=== PATIENT | female | born 1935 | race Caucasian/White ===

== ENCOUNTER → 2022-10-07 | Outpatient (CLI) | payer MEDICARE ==
[2022-10-07 13:31] LABS: African American GFR (CKD) 61 (>60 ml/min/1.73 sqM); Blood Urea Nitrogen 23 mg/dL (7-17); Non-African American GFR(CKD) 53 (>60 ml/min/1.73 sqM)
--- NOTE | 2022-10-07 15:12 | CT ---
EXAMINATION TYPE: CT urogram wo/w con DATE OF EXAM: 10/07/2022 COMPARISON: HISTORY: micro hematuria CT DLP: 1079 mGycm CONTRAST: Performed and with IV Contrast, patient injected with 80 mL of Isovue 300. CT Urography was performed with unenhanced followed by enhanced images of the kidneys, ureters and ur inary bladder. Delayed images were obtained. 3d reconstruction was performed at a separate work sta tion. FINDINGS: KIDNEYS/BLADDER: Atrophic left kidney which is also hypoperfused. Left renal arteries poorly visuali zed. Minimal cystic changes noted. The left kidney measures 6.5 x 3.0 cm while the right kidney measu res 9.0 x 5.4 cm. Renal cystic changes right kidney noted as well measuring up to 1.8 cm. No hydronep hrosis. No nephrolithiasis. No distinct solid renal mass. No urinary bladder wall thickening. Air i s seen within the urinary bladder which may be from recent catheterization or instrumentation. Correl ate clinically. LUNG BASES-: No visible nodule. No infiltrate. 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 Cardiomegaly. LIVER/GB: No calcified gallstones. No space occupying hepatic lesion. Biliary tree is of normal ca liber. PANCREAS: No inflammation. No distinct mass. SPLEEN: No splenic enlargement. No lesion seen. ADRENALS: No nodule. No thickening. BOWEL: Normal appendix. Normal bowel caliber. No inflammation. GENITAL ORGANS: No gross abnormality. LYMPH NODES: No greater than 1cm abdominal or pelvic lymph nodes are appreciated. AORTA: Infrarenal abdominal aortic aneurysm measuring 4.1 cm AP dimension. Diffuse atheromatous rao e seen. OSSEOUS STRUCTURES: No significant abnormality is seen. OTHER: Fat-containing ventral hernia. IMPRESSION: 1. Hypoperfused atrophic left kidney with difficulty in visualization of the left renal artery. 2. Renal cystic changes noted bilaterally. 3. Infrarenal abdominal aortic aneurysm.
== END | disposition home or self-care (01) ==
LOC: RADCTMAIN 12:30
PROVIDERS: ATTEND Urology
DX: I71.43 Infrarenal abdominal aortic aneurysm, without rupture (principal); N28.1 Cyst of kidney, acquired; N26.1 Atrophy of kidney (terminal); N39.0 Urinary tract infection, site not specified; R31.1 Benign essential microscopic hematuria
CPT/HCPCS: 82565; 84520; 74178; 36415; 74400; Q9967